=== PATIENT | female | born 1950 | race Caucasian/White ===

== ENCOUNTER → 2024-03-14 | Outpatient (CLI) | payer MEDICARE ==
[~2024-03-14] MED LIST: MECLIZINE PO; METOCLOPRAMIDE10 M2 PO; MULTIVITAMIN1 SGL PO; OMEPRAZOLE40 MG PO; PREMARIN0.3 MG PO; PROAIR RESPICL90 MCG IH; RELPAX20 MG PO; VESICARE10 MG PO
== END ==
LOC: RAD 12:04
DX: M79.671 Pain in right foot (principal)

== ENCOUNTER → 2024-04-04 | Day surgery (SDC) | payer MEDICARE ==
[~2024-04-04] MED LIST changes: +Lidocaine PF 2% (20 MG/ML) 5 ML VIAL ONE
== END | disposition home or self-care (01) ==
LOC: MSO 07:27
DX: K21.9 Gastro-esophageal reflux disease without esophagitis (principal); K44.9 Diaphragmatic hernia without obstruction or gangrene; K31.7 Polyp of stomach and duodenum; Z12.11 Encounter for screening for malignant neoplasm of colon; D12.3 Benign neoplasm of transverse colon; K57.30 Diverticulosis of large intestine without perforation or abscess without bleeding; Z79.899 Other long term (current) drug therapy
CPT/HCPCS: 00813; J2704; J7120